=== PATIENT | male | born 1960 | race Caucasian/White ===

== ENCOUNTER 2019-11-27 10:36 | Emergency (ER) | payer OTHER ==
[2019-11-27] MEDS ORDERED: Lidocaine 1% PF 5 ML VIAL ONE (10:52)
[2019-11-27] MEDS ORDERED: Adacel (T-DAP) 0.5 ML SYRINGE ONE (11:13)
== END 2019-11-27 11:35 | disposition home or self-care (01) ==
LOC: BURERS 10:36
DX: K61.1 Rectal abscess (principal); K61.0 Anal abscess; Z23 Encounter for immunization
CPT/HCPCS: 46040; 90471; 90715; J2001